=== PATIENT | female | born 1980 | race Caucasian/White ===

== ENCOUNTER 2016-05-15 00:38 | Inpatient (IN) | payer MEDICAID ==
[~2016-05-15] VITALS: Ht 157.5 cm; Wt 96.1 kg
[2016-05-15 00:52] VITALS: BP 135/67; PULSE 82; RESP 16; Ht 157.5 cm; Wt 96.1 kg
[2016-05-15 01:20] LABS: URINE BLOOD (Dip) POC Trace-intact (NEGATIVE)
--- NOTE | 2016-05-15 02:17 | RADRPT ---
PROCEDURE: Ultrasound CLINICAL INDICATION: Contractions with . TECHNIQUE: Ultrasound examination of biophysical profile. COMPARISON: Ultrasound dated 05/05/2016. FINDINGS: Single live. Uterine with estimated gestational age of 38 weeks and 3 days. Cardiac alisson on is detected at a rate of 154 beats per minute. Presentation is cephalic. Placenta is posterior grade II. CLAUDIO is 27.4 cm. breathing as appropriate for a score of 2; motion is appropriate for a score of 2; tone is appropriate for a score of 2; and amniotic fluid index is appropriate for a score of 2. IMPRESSION: Biophysical profile of 11/15. RPTAT: [facility] Physician Feliberto Date Time Electronically viewed and signed by Physician Feliberto on 05/15/2016 02:16 RS/
--- NOTE | 2016-05-15 02:20 | RADRPT ---
PROCEDURE: Ultrasound CLINICAL INDICATION: Contractions with . TECHNIQUE: Ultrasound examination of . COMPARISON: Ultrasound dated 05/05/2016. FINDINGS: Single live intrauterine with estimated gestational age of 38 weeks and 3 days. Estimated date of delivery is 05/27/2016. Cardiac motion is detected at a rate of 154 beats per minute. Prese ntation is cephalic. Placenta is posterior grade II. CLAUDIO is 27.4 cm. BPD is 9.44 cm. HC is 33.40 cm AC is 34.19 cm FL is 7.45 cm Estimated weight weight is 3413 g. breathing as appropriate for a score of 2; motion is appropriate for a score of 2; tone is appropriate for a score of 2; and amniotic fluid index is appropriate for a score of 2. IMPRESSION: 1. Single live intrauterine with estimated gestational age of 38 weeks and 3 days, with e stimated date of delivery of 05/27/2016. 2. Estimated weight is 3413 g. RPTAT: UU Physician Feliberto Date Time Electronically viewed and signed by Physician Feliberto on 05/15/2016 02:19 RS/
[2016-05-15] MEDS ORDERED: LACTATED RINGER'S 1,000 ML IV ONE ×2 (03:00)
[2016-05-15] MEDS ORDERED: OXYTOCIN 30 UNITS/LR 500 ML IV SCH (03:00)
[2016-05-15] MEDS ORDERED: METHYLERGONOVINE 0.2 MG INJ IM PRN ×3 (03:00→12:00)
[2016-05-15] MEDS ORDERED: OXYTOCIN 30 UNITS/LR 500 ML IV PRN ×3 (03:00→12:00)
[2016-05-15] MEDS ORDERED: MISOPROSTOL 200 MCG TAB PR PRN ×3 (03:00→12:00)
[2016-05-15] MEDS ORDERED: CEFAZOLIN 2 GM/50 ML (PMX) 50 ML IV SCH (03:00)
[2016-05-15] MEDS ORDERED: CARBOPROST 250 MCG INJ IM PRN ×3 (03:00→12:00)
[2016-05-15 04:24] LABS: BASOPHILS % 0.4 % (0.0-2.0); EOSINOPHILS # 0.1 10^3/ul (0.0-0.5); EOSINOPHILS % 1.6 % (0.0-7.0); HEMOGLOBIN 14.1 g/dl (12.0-16.0); LYMPHOCYTES # 2.2 10^3/ul (0.8-2.9); LYMPHOCYTES % 24.8 % (15.0-51.0); MEAN CORPUSCULAR HEMOGLOBIN 32.2 pg (29.0-33.0); MEAN CORPUSCULAR HGB CONC 34.3 g/dl (32.0-37.0); MEAN CORPUSCULAR VOLUME 93.7 fl (82.0-101.0); MONOCYTE # 0.6 10^3/ul (0.3-0.9); MONOCYTES % 6.6 % (0.0-11.0); NEUTROPHILS % 66.6 % (39.0-77.0); PLATELET COUNT 170 10^3/UL (140-440); RED BLOOD COUNT 4.38 10^6/ul (4.20-5.40); RED CELL DISTRIBUTION WIDTH 13.3 % (11.5-14.5)
[2016-05-15 04:28] LABS: ALBUMIN 3.1 g/dl (3.3-4.9)
[2016-05-15 04:29] LABS: CHLORIDE 105 mmol/L (97-110); SODIUM 138 mmol/L (135-144)
[2016-05-15 04:31] LABS: ALKALINE PHOSPHATASE 198 IU/L (42-121); ANION GAP 15 (8-16); ASPARTATE AMINO TRANSFERASE 23 IU/L (15-46); BILIRUBIN,INDIRECT 0.3 mg/dl (0-1.1); BILIRUBIN,TOTAL 0.3 mg/dl (0.2-1.3); CARBON DIOXIDE 22 mmol/L (21-31); CREATININE 0.54 mg/dl (0.44-1.00); TOTAL PROTEIN 5.9 g/dl (6.1-8.1)
[2016-05-15 04:32] LABS: ALANINE AMINOTRANSFERASE 32 IU/L (13-69); BLOOD UREA NITROGEN 15 mg/dl (7-20); CALCIUM 9.5 mg/dl (8.4-10.2); GLUCOSE 91 mg/dl (70-220)
[2016-05-15 04:33] LABS: INR 0.9; PARTIAL THROMBOPLASTIN TIME 26.1 Sec (25.0-35.0); PROTIME 12.1 Sec (12.2-14.2); PT RATIO 0.9
[2016-05-15 05:44] LABS: CONDITION 1
[2016-05-15] MEDS ORDERED: LACTATED RINGER'S 1,000 ML IV SCH (06:00)
[2016-05-15] MEDS ORDERED: CITRIC ACID/NA CITRATE 30 ML CUP ONE (07:58)
[2016-05-15] MEDS ORDERED: FAMOTIDINE 20 MG INJ ONE (07:58)
[2016-05-15] MEDS ORDERED: METOCLOPRAMIDE 10 MG INJ ONE (07:59)
[2016-05-15] MEDS ORDERED: FAMOTIDINE 20 MG INJ IV ONE (08:00)
[2016-05-15] MEDS ORDERED: CITRIC ACID/NA CITRATE 30 ML CUP PO ONE (08:00)
[2016-05-15] MEDS ORDERED: METOCLOPRAMIDE 10 MG INJ IV ONE (08:00)
[2016-05-15] MEDS ORDERED: morphine SULFATE/PF (10 MG/10 ML) INJ ONE (08:23)
[2016-05-15] MEDS ORDERED: FENTAnyl 50 MCG/ML VIAL ONE (08:23)
[2016-05-15] MEDS ORDERED: ONDANSETRON 4 MG INJ ONE (08:40)
[2016-05-15] MEDS ORDERED: EPHEDrine SULFATE 50 MG/5 ML SYG ONE (08:51)
[2016-05-15] MEDS ORDERED: MEPERIDINE 25 MG INJ IV PRN (09:00)
[2016-05-15] MEDS ORDERED: ONDANSETRON 4 MG INJ IV PRN ×4 (09:00→12:00)
[2016-05-15] MEDS ORDERED: HYDROmorphONE (0.2 MG/ML) 10ML SYG IV PRN ×3 (09:00)
[2016-05-15] MEDS ORDERED: PROCHLORPERAZINE 10 MG INJ IV PRN ×2 (09:00→11:00)
[2016-05-15] MEDS ORDERED: KETOROLAC 30 MG INJ IV PRN (09:00)
[2016-05-15] MEDS ORDERED: FENTAnyl 50 MCG/ML VIAL IV PRN (09:00)
[2016-05-15] MEDS ORDERED: DIPHENHYDRAMINE 50 MG INJ IV PRN ×4 (09:00→12:00)
--- NOTE | 2016-05-15 09:45 | HP ---
Date/Time of Note Date/Time of Note DATE: 05/15/16 TIME: 08:37 OB - History Hx of Present Free Text/Dictation 35 y.o G4PA0 at 38w3d came in with c/o passing blood clot and iregular uterine contraction known to have GDM be random was normal cousae was unevenful except GDM admitted for repeat c-s Chief Complaint: passing blood clots Estimated Due Date: May 26, 2016 : 4 Para: 3 Spontaneous : 0 Therapeutic : 0 Care: Good Care Ultrasounds: Normal mid trimester US Obstetrical Complications: Gestational Diabetes Medical Complications: None Past Family/Social History * Past Medical, Surgical, Family and Obstetric Histories reviewed from chart. Blood Type: O+ Rubella: immune RPR/VDRL: Negative GBS Status: Unknown HBsAG: Negative OB Admission Exam Vital Signs Vital Signs Vital Signs Date Time Temp Pulse Resp B/P Pulse Ox O2 Delivery O2 Flow Rate FiO2 05/15/16 00:52 97.7 82 16 135/67 98 Room Air Physical Exam HEENT: WNL Heart: Rhythm Normal Lungs: Clear, Equal Abdomen: WNL Extremities: Normal Reflexes: Normal Cervical Dilatation: Fingertip Effacement: 0% Station: -3 Membranes: Intact Amniotic Fluid: Unevaluable Heart Rate: 150's Accelerations: Accelerations Present Decelerations: No Decelerations Varibility: Moderate Contractions on Admission: >10 Minutes Apart Intensity: Mild Last 72 hourBlood Glucose Bedside Glucose - 72 Hours Test 05/15/16 00:51 Bedside Glucose 91mg/dL (70-220) Last 72 hours Lab Results CBC & BMP 05/15/16 03:30 Liver Function Test 05/15/16 03:30 Alanine Aminotransferase (ALT/SGPT) 32 Albumin 3.1 L Alkaline Phosphatase 198 H Aspartate Amino Transf (AST/SGOT) 23 Direct Bilirubin 0.00 Total Protein 5.9 L OB Assessment/Plan Reason for admission: other (early labor with passing blood clot) Plan: Section JONNIE MARY MD May 15, 2016 08:47
[2016-05-15] MEDS ORDERED: NALOXONE (0.4 MG/ML) INJ IV PRN (11:00)
[2016-05-15] MEDS ORDERED: ZOLPIDEM 5 MG TAB PO PRN ×3 (11:00→12:00)
[2016-05-15] MEDS ORDERED: HYDROmorphONE 1 MG/ML SYG IV PRN ×2 (11:00)
[2016-05-15] MEDS ORDERED: LANOLIN 7 GM TUBE TOP PRN (12:00)
[2016-05-15] MEDS ORDERED: OXYCODONE/ACETAMINOPHEN (5/325) TAB PO PRN (12:00)
[2016-05-15] MEDS ORDERED: IBUPROFEN 600 MG TAB PO SCH (12:00)
[2016-05-15 12:30] VITALS: BP 171/77; PULSE 67; RESP 18
[2016-05-15] MEDS: LACTATED RINGER'S 1,000 ML IV SCH ×2 (14:07→22:25)
[2016-05-15 15:45] VITALS: BP 139/74; PULSE 70; RESP 18
[2016-05-15] MEDS: KETOROLAC 30 MG INJ IV PRN ×2 (17:35→23:57)
[2016-05-15 20:00] VITALS: BP 132/67; PULSE 70; RESP 19
[2016-05-15] MEDS: SENNA/DOCUSATE NA (8.6MG/50MG) TAB PO SCH (21:09)
[2016-05-16] VITALS: BP 130/71; PULSE 76; RESP 17
--- NOTE | 2016-05-16 03:13 | OPR ---
DATE OF OPERATION: 05/15/2016 PREOPERATIVE DIAGNOSIS: , 38 weeks 5 days, with a previous section and vaginal bl eeding in early labor. POSTOPERATIVE DIAGNOSES: 1. , 38 weeks 5 days, with a previous section and vaginal bleeding in early labor . 2. Delivered normal infant. OPERATION PERFORMED: Repeat low transverse section. ANESTHESIA: Spinal. ANESTHESIOLOGIST: Dr. Jorgensen SERVICE GIRL: SURGEON: Kendrick eTnorio MD ESTIMATED BLOOD LOSS: Approximately 600 mL FINAL SPONGE COUNT AND INSTRUMENT COUNT AND NEEDLE COUNT: Correct. PROCEDURE: Under appropriate induction of spinal anesthesia, the patient was placed in the frog pos ition. Lemus catheter was introduced into the bladder under sterile condition, repositioned to [facility] [place]. Abdominal wall was prepped and draped in usual aseptic manner. A low transverse incision was m lui approximately 2 fingers above the pubic rami because the previous incision was rather high. The incision was carried down through the subcutaneous tissue to the anterior recti fascia which was in cised transversely in length of the incision. Facial flap was created by blunt and sharp dissection of tendinous attachment to rectus muscles, split in midline, and peritoneal cavity was entered. Lo w portion of the uterus was exposed. Its rather low segment was narrow, and the incision was made a santos the uterovesical reflection, layer by layer, reached the amniotic membrane, ruptured, revealed clear amniotic fluid which was a large amount, and the fetus was vertex. Because of the large amoun t of fluid, it was changed to transverse position. Head was on the right side of the abdomen which was guided to the origin position which was vertex and delivered. Since he was floated using Kiwi v acuum gently one time with probably less than 5 seconds, and the fetus was delivered. Mouth and nos e were cleaned, cord was clamped and cut, handed to the respiratory care personnel for further care. Cord blood was obtained. The placenta was removed manually. Cavity was completely explored after uterus was exteriorized. Incision was closed using #1 chromic catgut in continuous manner, and the second layer was using 0 chromic catgut in continuous manner. No bleed was noted. Uterus was relo cated into the abdominal cavity, and the incisional site was rechecked. The abdominal cavity was ir rigated with water, and the final sponge count was taken which was correct. Parietal peritoneum was closed using 0 chromic catgut in continuous manner, muscle closed with 0 chromic catgut in continuo us manner. Fascia closed with #1 Vicryl in continuous manner in 2 segments. Subcutaneous tissue ir rigated with water. This layer was approximated with 2-0 plain in continuous manner. Skin closed w ith 3-0 Monocryl in subcuticular manner. Steri-Strip applied. A pressure dressing applied. Estima florentin blood loss approximately 600 mL. The patient withstood the procedure well and was sent to [facility] in stable condition. Dictated By: KENDRICK MCGRAW/JB Conf#: [id number] DID#: [id number]
[2016-05-16 03:35] VITALS: BP 111/63; PULSE 69; RESP 17
[2016-05-16] MEDS: LACTATED RINGER'S 1,000 ML IV SCH (06:16)
[2016-05-16 07:30] VITALS: BP 131/61; PULSE 70; RESP 18
[2016-05-16 07:56] LABS: BASOPHILS % 0.3 % (0.0-2.0); EOSINOPHILS # 0.1 10^3/ul (0.0-0.5); EOSINOPHILS % 0.8 % (0.0-7.0); HEMATOCRIT 31.7 % (37.0-47.0); HEMOGLOBIN 11.2 g/dl (12.0-16.0); LYMPHOCYTES # 2.1 10^3/ul (0.8-2.9); LYMPHOCYTES % 19.9 % (15.0-51.0); MEAN CORPUSCULAR HEMOGLOBIN 33.2 pg (29.0-33.0); MEAN CORPUSCULAR HGB CONC 35.2 g/dl (32.0-37.0); MEAN CORPUSCULAR VOLUME 94.2 fl (82.0-101.0); MEAN PLATELET VOLUME 9.3 fl (7.4-10.4); MONOCYTE # 0.6 10^3/ul (0.3-0.9); MONOCYTES % 6.2 % (0.0-11.0); NEUTROPHIL # 7.6 10^3/ul (1.6-7.5); NEUTROPHILS % 72.8 % (39.0-77.0); PLATELET COUNT 145 10^3/UL (140-440); RED BLOOD COUNT 3.37 10^6/ul (4.20-5.40); RED CELL DISTRIBUTION WIDTH 13.1 % (11.5-14.5); UNCORRECTED WBC 10.5 10^3/ul (4.8-10.8); WHITE BLOOD COUNT 10.5 10^3/ul (4.8-10.8)
[2016-05-16 07:57] LABS: CONDITION 1
[2016-05-16] MEDS: SENNA/DOCUSATE NA (8.6MG/50MG) TAB PO SCH ×2 (08:46→21:22)
[2016-05-16] MEDS ORDERED: INFLUENZA VIRUS VACCINE 0.5 ML (DISPENSING) IM* ONE (09:00)
[2016-05-16] MEDS: OXYCODONE/ACETAMINOPHEN (5/325) TAB PO PRN (10:02)
[2016-05-16] MEDS: IBUPROFEN 600 MG TAB PO SCH ×3 (12:03→23:50)
[2016-05-16 15:38] VITALS: BP 126/76; PULSE 89; RESP 18
[2016-05-16 20:15] VITALS: BP 118/60; PULSE 75; RESP 18
[2016-05-17 03:45] VITALS: BP 122/60; PULSE 73; RESP 18
[2016-05-17] MEDS: IBUPROFEN 600 MG TAB PO SCH ×3 (05:34→18:13)
[2016-05-17 07:45] VITALS: BP 117/58; PULSE 73; RESP 18
[2016-05-17] MEDS: SENNA/DOCUSATE NA (8.6MG/50MG) TAB PO SCH ×2 (08:37→21:56)
--- NOTE | 2016-05-17 10:49 | PN ---
Date/Time of Note Date/Time of Note DATE: 05/17/16 TIME: 10:47 OB Subjective Subjective Subjective no c/o passing flatus OB Objective Objective Objective vss afebrile abdomen soft wound dry lochia min ext mild edema OB Assessment/Plan Other Assessment: stable post c-s #2 Other plan: d/s home in am JONNIE MARY MD May 17, 2016 10:49
[2016-05-17 16:31] VITALS: BP 135/81; PULSE 76; RESP 18
[2016-05-17 19:55] VITALS: BP 122/69; PULSE 76; RESP 18
[2016-05-17] MEDS: OXYCODONE/ACETAMINOPHEN (5/325) TAB PO PRN (22:31)
[2016-05-18] MEDS: IBUPROFEN 600 MG TAB PO SCH ×2 (00:02→05:46)
[2016-05-18 03:36] VITALS: BP 128/80; PULSE 69; RESP 19
[2016-05-18] MEDS: OXYCODONE/ACETAMINOPHEN (5/325) TAB PO PRN (03:36)
[2016-05-18 08:30] VITALS: BP 146/69; PULSE 74; RESP 18
[2016-05-18] MEDS ORDERED: DIPHTH/TET/ACEL PERTUSS (ADULT) 0.5 ML VIAL IM* ONE (09:00)
[2016-05-18] MEDS: SENNA/DOCUSATE NA (8.6MG/50MG) TAB PO SCH (10:33)
--- NOTE | 2016-05-18 11:52 | PD.PPDC ---
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 Instruction Diagnosis Final Diagnosis: s/p repeat section Condition Patient Condition: Stable Diet Diet: Resume Regular Diet Activity/Restrictions Activity: May Shower Restrictions: No Exercising No Lifting Minimize Stair-climbing No Sexual Activity Nothing in the Vagina No Vona No Tampons, douche Wound/Drain Care Instructions Wound/Drain Care Instructions: Wash with soap and water Keep clean and dry Follow-up Follow-up with Physician: 2, Week/Weeks Return to clinic for PAPER STRIPPER Instructions: Fever greater than 101 Chills Worsening abdominal pain Excessive Vaginal Bleeding More than 2 pads per hour Unable to tolerate diet OB Instructions: Breast Tenderness Depression Blurried Vision Headache Surgical Instructions: Incisional Drainage Incisional Redness JONNIE MARY MD May 18, 2016 11:52
--- NOTE | 2016-05-18 11:58 | DS ---
Date/Time of Note Date/Time of Note DATE: 05/18/16 TIME: 11:55 Obstetrical Discharge Record Final Diagnosis Final Diagnosis: Term delivered Section Section: Repeat Complications Other Gestational Age at Rupture previous section Condition on Discharge Physical Assessment Last Vitals: vss afebrile Voiding: Yes Bowel Movement: Yes Breast: Soft, non-tender Fundus: Firm Abdomen and Incision: wound dry soft Calf Tenderness: No Patient Condition: Stable JONNIE MARY MD May 18, 2016 11:58
== END 2016-05-18 12:48 | disposition home or self-care (01) | DRG 766 ==
LOC: EEVIPCON 00:38 → OBT 00:38 → L-D 00:39 → OBT 02:47 → L-D 02:49 → PP1 12:32
PROVIDERS: ADMIT Obstetrics & Gynecology; ATTEND Obstetrics & Gynecology
PROC: 10D00Z1 Extraction of Products of Conception, Low, Open Approach (ICD-10-PCS; principal; 2016-05-15 09:00)
PROC: 3E00X4Z Introduction of Serum, Toxoid and Vaccine into Skin and Mucous Membranes, External Approach (ICD-10-PCS; 2016-05-18)
DX: O24.429 Gestational diabetes mellitus in childbirth, unspecified control (principal); O34.211 Maternal care for low transverse scar from previous cesarean delivery; Z23 Encounter for immunization; Z3A.38 38 weeks gestation of pregnancy; Z37.0 Single live birth
CPT/HCPCS: 36415; 76815; 76818; 80053; 81003; 82962; 84560; 85025; 85362; 85384; 85610; 85730; 86592; 86850; 86900; 86901; 87340; 90686; 90715; 99464; G0463; J0690; J1885; J2274; J2405; J2590; J2765; J3010; J7120